=== PATIENT | female | born 1985 | race Caucasian/White ===

== ENCOUNTER 2018-05-30 01:25 | Emergency (ER) | payer SELFPAY ==
[~2018-05-30] VITALS: Ht 152.4 cm; Wt 68.7 kg
[2018-05-30 01:32] VITALS: Ht 152.4 cm; Wt 68.7 kg
[2018-05-30] MEDS ORDERED: KETOROLAC 30 MG INJ IM STA (06:01)
[2018-05-30] MEDS ORDERED: IBUP-1542 PO (06:10)
[2018-05-30] MEDS ORDERED: METH750T93 PO (06:10)
--- NOTE | 2018-05-30 06:16 | ERD ---
ER Documentation Chief Complaint Chief Complaint lower back pain & lower abd pain X2 days HPI 33-year-old female complaining of right lower back pain times 2 days. Patient states the pain is sharp, and is associated with movement. At the initial onset of the pain, patient states that she was bending over for something. Patient also reports feeling bloated in the lower abdomens. Denies falls or heavy lifting. Denies saddle paresthesia. Denies bowel or bladder dysfunction. Denies dysuria. Denies vomiting or diarrhea. Denies fever or chills. ROS All systems reviewed and are negative except as per history of present illness. Medications Home Meds Active Scripts Methocarbamol* (Robaxin*) 750 Mg Tablet, 750 MG PO Q6H PRN for MUSCLE SPASMS, #20 TAB Prov:BIRD RESENDIZ. DEVELOPMENT SCIENTIST 05/30/18 Ibuprofen* (Motrin*) 600 Mg Tab, 600 MG PO Q6H PRN for PAIN AND OR ELEVATED TEMP, #30 TAB Prov:BIRD RESENDIZ. DEVELOPMENT SCIENTIST 05/30/18 Allergies Allergies: Coded Allergies: No Known Allergy (Unverified , 05/30/18) PMhx/Soc Medical and Surgical Hx: pt denies Medical Hx, pt denies Surgical Hx Hx Alcohol Use: No Hx Substance Use: No Hx Tobacco Use: No Smoking Status: Never smoker Physical Exam Vitals Vital Signs Date Temp Pulse Resp B/P (MAP) Pulse Ox O2 O2 Flow FiO2 Time Delivery Rate 05/30/18 97.8 72 18 136/84 100 01:32 (101) Physical Exam General: Well-developed, well-nourished, conscious and coherent, in no distress Skin: Warm and dry without rash, good texture and turgor Head: Normocephalic without evidence of trauma Chest: Normal AP diameter. Good expansion without retractions. Nontender. Lungs are clear to auscultate bilaterally with good tidal volume Heart: Regular rate and rhythm. No murmur, rub, or gallops heard Abdomen: Soft and nontender without masses, guarding, or rebound. Bowel sounds are active. No hepatosplenomegaly Back: Without spinal or CVA tenderness. Muscle spasm noted in the right lumbar region Extremities: Full range of motion. Good strength bilaterally. No erythema, ecchymosis, or edema. Peripheral pulses are intact. Sensation intact Neuro: Alert and oriented 4, GCS 15. Results 24 hrs Laboratory Tests Test 05/30/18 05:33 05/30/18 05:34 Bedside Urine pH (LAB) 5.5 Bedside Urine Protein (LAB) 1+ Bedside Urine Glucose (UA) Negative Bedside Urine Ketones (LAB) 1+ Bedside Urine Blood Trace-lysed Bedside Urine Nitrite (LAB) Negative Bedside Urine Leukocyte Esterase (L Trace POC Beta HCG, Qualitative NEGATIVE Current Medications Medications Dose Sig/Dony Start Time Status Last (Trade) Ordered Route PRN Stop Time Admin Dose Reason Admin Ketorolac 30 mg ONCE STAT 05/30/18 DC 05/30/18 Tromethamine IM 06:01 05/30/18 06:07 (Toradol) 06:02 Procedures/MDM Patient does not have any midline spinal tenderness. I doubt spinal fracture, subluxation, or disc herniation. I doubt spinal epidural abscess, cauda equina syndrome. Likely patient back pain due to muscle spasm secondary to back muscle strain. She is given Toradol in the ED for pain. Patient is advised to follow- up with PCP. She is also advised to apply heating pad and obtain massage to help relieve her pain. Patient appears well, stable for discharge and outpatient management. Medical decision making shared with patient and family. Education provided to patient and family. Patient and family expressed understanding of the plan. Medications on discharge: Ibuprofen, Robaxin. Follow-up: Primary care provider in 1 week or return to ED if worse. Disclaimer: Inadvertent spelling and grammatical errors are likely due to EHR/dictation software use and do not reflect on the overall quality of patient care. Also, please note that the electronic time recorded on this note does not necessarily reflect the actual time of the patient encounter. Departure Diagnosis: Primary Impression: Back spasm Condition: Stable Patient Instructions: Back Spasm, No Trauma Referrals: COMMUNITY CLINICS YOU HAVE RECEIVED A MEDICAL SCREENING EXAM AND THE RESULTS INDICATE THAT YOU DO NOT HAVE A CONDITION THAT REQUIRES URGENT TREATMENT IN THE EMERGENCY DEPARTMENT. FURTHER EVALUATION AND TREATMENT OF YOUR CONDITION CAN WAIT UNTIL YOU ARE SEEN IN YOUR DOCTORS OFFICE WITHIN THE NEXT 1-2 DAYS. IT IS YOUR RESPONSIBILITY TO MAKE AN APPOINTMENT FOR FOLOW-UP CARE. IF YOU HAVE A PRIMARY DOCTOR --you should call your primary doctor and schedule an appointment IF YOU DO NOT HAVE A PRIMARY DOCTOR YOU CAN CALL OUR PHYSICIAN REFERRAL HOTLINE AT IF YOU CAN NOT AFFORD TO SEE A PHYSICIAN YOU CAN CHOSE FROM THE FOLLOWING [facility] [address] [place] [facility] [address] [place] [facility] [address] [facility] [address] [facility] [address] [facility]. [address] [facility]. [facility] YOU HAVE RECEIVED A MEDICAL SCREENING EXAM AND THE RESULTS INDICATE THAT YOU DO NOT HAVE A CONDITION THAT REQUIRES URGENT TREATMENT IN THE EMERGENCY DEPARTMENT. FURTHER EVALUATION AND TREATMENT OF YOUR CONDITION CAN WAIT UNTIL YOU ARE SEEN IN YOUR DOCTORS OFFICE WITHIN THE NEXT 1-2 DAYS. IT IS YOUR RESPONSIBILITY TO MAKE AN APPOINTMENT FOR FOLOW-UP CARE. IF YOU HAVE A PRIMARY DOCTOR --you should call your primary doctor and schedule and appointment IF YOU DO NOT HAVE A PRIMARY DOCTOR YOU CAN CALL OUR PHYSICIAN REFERRAL HOTLINE AT . IF YOU CAN NOT AFFORD TO SEE A PHYSICIAN YOU CAN CHOSE FROM THE FOLLOWING [facility], [facility] INSTITUTIONS: [facility] [address] [place] [address] [facility] [address] [place] [address] [facility] [address] [place] [address] Additional Instructions: Call your primary care doctor TOMORROW for an appointment during the next 1 WEEK.Tell the typing secretary that you were referred from this facility.See the doctor sooner or return here if your condition worsens before your appointment time. BIRD RESENDIZ NP May 30, 2018 06:16
[2018-05-30 06:59] VITALS: BP 124/76; PULSE 71; RESP 19
== END 2018-05-30 07:00 | disposition home or self-care (01) ==
LOC: FTE 01:25
DX: M62.830 Muscle spasm of back (principal); R40.2412 Glasgow coma scale score 13-15, at arrival to emergency department
CPT/HCPCS: 81003; 81025; 87591; 96372; 99284; J1885